=== PATIENT | female | born 1995 | race Caucasian/White ===

== ENCOUNTER → 2020-04-12 10:17 | Outpatient (CLI) | payer OTHER, SELFPAY ==
--- NOTE | ~2020-04-12 | US_ITS ---
EXAMINATION: US OB <=14 wk fetus w TV DATE: 04/12/2020 10:56 INDICATION: Supervision normal TECHNIQUE: Real-time transabdominal and transvaginal obstetric ultrasound. FINDINGS: No prior studies for comparison. The uterus measures 9.9 x 3.7 x 5 cm. There is an intrauterine gestational sac, with pole ident ified. The crown rump length measures 0.36 cm, which correlates with a estimated gestational age of 6 weeks 0 days. heart tones are identified measuring 112 BPM. There is a small subchorionic h emorrhage measuring 4 mm. The ovaries are normal bilaterally. IMPRESSION: 1. SL IUP with an EGA of 6 weeks, 0 days (EDC by current ultrasound of 12/06/2020). 2: Small subchorionic hemorrhage measuring 4 mm maximum dimension. Reviewed, dictated and finalized at location A. IMPRESSION: 1. SL IUP with an EGA of 6 weeks, 0 days (EDC by current ultrasound of ). 2: Small subchorionic hemorrhage measuring 4 mm maximum dimension.
== END ==
PROVIDERS: Visit Provider Student in an Organized Health Care Education/Training Program
DX: Z34.91 Encounter for supervision of normal pregnancy, unspecified, first trimester (principal); Z3A.01 Less than 8 weeks gestation of pregnancy
CPT/HCPCS: 76801; 76817

== ENCOUNTER → 2020-04-19 12:48 | Outpatient (CLI) | payer OTHER, SELFPAY ==
--- NOTE | ~2020-04-19 | US_ITS ---
EXAMINATION: US OB <=14 wk fetus w TV DATE: 04/19/2020 13:15 INDICATION: Assess viability and dating of during first trimester of . TECHNIQUE: Real-time pelvic ultrasound utilizing both a transvaginal and transabdominal probe was pe rformed. The interpreting radiologist was not present for the study. COMPARISON: 05/12/2020 FINDINGS: The uterus measures 10.4 x 5.1 x 5.9 cm. There is an intrauterine gestational sac. A yolk sac and fe luis pole are identified. The crown rump length measures 10 mm, which correlates with an estimated ges tational age of 7 weeks and 0 days. heart motion is identified measuring 141 beats per minute ( bpm) by M-mode Doppler. Prior small subchorionic hematomas not appreciated in the current study and h as likely resolved. The right ovary measures 2.6 x 2.1 x 3.1 cm. The left ovary measures 3.4 x 2.8 x 2.1 cm. There is no free fluid in the pelvis. IMPRESSION: 1. Single living fetus with heart rate of 141 bpm. 2. Gestational age by ultrasound of 7 weeks 0 day(s) +/- 4 day(s) with ultrasound estimated date of delivery (ENRIQUE) of 12/06/2020. Reviewed, dictated and finalized at location A. IMPRESSION: 1. Single living fetus with heart rate of 141 bpm. 2. Gestational age by ultrasound of 7 weeks 0 day(s) +/- 4 day(s) with ultraso und estimated date of delivery (ENRIQUE) of 12/06/2020.
== END ==
PROVIDERS: Visit Provider Student in an Organized Health Care Education/Training Program
DX: Z32.00 Encounter for pregnancy test, result unknown (principal)
CPT/HCPCS: 76801; 76817

== ENCOUNTER 2020-05-28 13:16 | Outpatient (CLI) | payer OTHER, SELFPAY ==
[2020-05-28 14:00] LABS: Basophils Percent Auto 0.3 % (0.2-1.2); Eosinophils Absolute Auto 0.1 K/mm3 (0-0.3); Eosinophils Percent Auto 0.4 % (0-4.4); Hematocrit 37.8 % (37.0-47.0); Hemoglobin 13.4 g/dL (12.0-15.0); Immature Granulocyte Absolute 0.05 K/mm3 (0.00-0.031); Immature Granulocyte Percent A 0.4 % (0-0.5); Lymphocytes Absolute Auto 2.28 K/mm3 (0.9-3.2); Lymphocytes Percent Auto 20.4 % (18.3-44.2); Mean Corpuscular HGB Conc 35.4 g/dl (32-36); Mean Corpuscular Hemoglobin 31.5 pg (26-34); Mean Corpuscular Volume 88.9 fl (80-100); Mean Platelet Volume 9.5 fl (7.4-10.4); Monocytes Absolute Auto 0.4 K/mm3 (0.1-0.6); Monocytes Percent Auto 3.6 % (2.6-8.5); Neutrophils Absolute Auto 8.4 K/mm3 (1.3-6.7); Neutrophils Percent Auto 74.9 % (45.5-73.1); Platelet Count Result 211 k/mm3 (150-375); Red Blood Count 4.25 M/mm3 (4.2-5.4); Red Cell Distribution Width 12.2 % (11.5-14.5); White Blood Count 11.2 K/mm3 (4.5-10.0)
[2020-05-28 14:18] LABS: Add Urine Microscopic? NO; Appearance Urine Clear (Clear); Bilirubin Urine Negative (Negative); Blood Urine Negative (Negative); Color Urine Straw (Yellow); Glucose Urine UA Negative (Negative); Ketones Urine Negative (Negative); Leukocyte Esterase Ur Negative LEU/UL (NEGATIVE); Nitrate Urine Negative (Negative); Protein Urine Negative (Negative); Specific Grav Ur 1.008 (1.001-1.035); Urobilinogen Urine Negative mg/dL (<2.0)
[2020-05-28 14:56] LABS: HIV 1/2 Ab P24 Ag Result Negative (Negative)
[2020-05-28 15:12] LABS: Hepatitis C Virus Antibody Negative (Negative)
[2020-05-28 15:41] LABS: Hepatitis B Surface Antigen Negative (Negative); Rubella IgG Antibody 23.5 IU/ML
[2020-05-31 12:34] LABS: Rapid Plasma Reagin Non-Reactive (NonReactive)
[2020-06-03 14:40] LABS: Hematocrit 38.2 % (35.0-45.0); Hemoglobin 13.3 g/dL (11.7-15.5); MCH 31.2 pg (27.0-33.0); RDW 12.7 % (11.0-15.0); Red Blood Cell Count 4.25 Mill/uL (3.80-5.10)
== END 2020-05-28 13:17 | disposition home or self-care (01) ==
PROVIDERS: PCP Internal Medicine; Visit Provider Student in an Organized Health Care Education/Training Program
DX: Z32.00 Encounter for pregnancy test, result unknown (principal)
CPT/HCPCS: 36415; 81003; 82306; 83021; 84443; 85025; 86592; 86703; 86762; 86787; 86803; 86850; 86900; 86901; 87086; 87340; G0432

== ENCOUNTER 2020-06-25 13:36 | Outpatient (CLI) | payer OTHER, SELFPAY ==
[2020-07-08 19:32] LABS: CF Result NEGATIVE (NEGATIVE)
== END 2020-06-25 13:37 | disposition home or self-care (01) ==
PROVIDERS: PCP Internal Medicine; Visit Provider Student in an Organized Health Care Education/Training Program
DX: Z32.00 Encounter for pregnancy test, result unknown (principal); Z3A.00 Weeks of gestation of pregnancy not specified
CPT/HCPCS: 36415; 81220; 81243

== ENCOUNTER 2020-08-27 13:20 | Outpatient (RCR) | payer OTHER, SELFPAY ==
[2020-08-27 13:54] LABS: Basophils Percent Auto 0.3 % (0.2-1.2); Eosinophils Absolute Auto 0.1 K/mm3 (0-0.3); Eosinophils Percent Auto 0.5 % (0-4.4); Hematocrit 35.9 % (37.0-47.0); Hemoglobin 12.4 g/dL (12.0-15.0); Immature Granulocyte Absolute 0.06 K/mm3 (0.00-0.031); Immature Granulocyte Percent A 0.5 % (0-0.5); Lymphocytes Absolute Auto 1.92 K/mm3 (0.9-3.2); Lymphocytes Percent Auto 17.4 % (18.3-44.2); Mean Corpuscular HGB Conc 34.5 g/dl (32-36); Mean Corpuscular Hemoglobin 31.6 pg (26-34); Mean Corpuscular Volume 91.3 fl (80-100); Monocytes Absolute Auto 0.5 K/mm3 (0.1-0.6); Monocytes Percent Auto 4.5 % (2.6-8.5); Neutrophils Absolute Auto 8.5 K/mm3 (1.3-6.7); Neutrophils Percent Auto 76.8 % (45.5-73.1); Platelet Count Result 162 k/mm3 (150-375); Red Blood Count 3.93 M/mm3 (4.2-5.4)
[2020-08-27 15:03] LABS: Glucose 1 Hour PP 50gm Dose 127 mg/dL
[2020-08-28] MEDS: RHO(D) IMMUNE GLOBULIN 300 MCG SYRINGE IM (08:49)
== END 2020-11-25 23:59 | disposition home or self-care (01) ==
LOC: ANHLAB 13:20
PROVIDERS: PCP Internal Medicine; Visit Provider Student in an Organized Health Care Education/Training Program
DX: Z29.13 Encounter for prophylactic Rho(D) immune globulin (principal); O36.0990 Maternal care for other rhesus isoimmunization, unspecified trimester, not applicable or unspecified; Z3A.00 Weeks of gestation of pregnancy not specified
CPT/HCPCS: 36415; 82947; 85025; 85461; 90384; 96372; J2790

== ENCOUNTER 2020-10-15 12:54 | Outpatient (CLI) | payer OTHER, SELFPAY ==
[2020-10-15 13:16] LABS: Basophils Percent Auto 0.3 % (0.2-1.2); Eosinophils Absolute Auto 0.1 K/mm3 (0-0.3); Eosinophils Percent Auto 0.6 % (0-4.4); Hematocrit 37.2 % (37.0-47.0); Hemoglobin 12.9 g/dL (12.0-15.0); Immature Granulocyte Absolute 0.05 K/mm3 (0.00-0.031); Immature Granulocyte Percent A 0.6 % (0-0.5); Immature Platelet Fraction Pct 6.2 % (0.9-11.2); Lymphocytes Absolute Auto 1.69 K/mm3 (0.9-3.2); Lymphocytes Percent Auto 21.2 % (18.3-44.2); Mean Corpuscular HGB Conc 34.7 g/dl (32-36); Mean Corpuscular Volume 92.3 fl (80-100); Mean Platelet Volume 10.6 fl (7.4-10.4); Monocytes Absolute Auto 0.5 K/mm3 (0.1-0.6); Monocytes Percent Auto 6.4 % (2.6-8.5); Neutrophils Absolute Auto 5.7 K/mm3 (1.3-6.7); Neutrophils Percent Auto 70.9 % (45.5-73.1); Platelet Count Result 146 k/mm3 (150-375); Red Blood Count 4.03 M/mm3 (4.2-5.4); Red Cell Distribution Width 13.2 % (11.5-14.5)
[2020-10-15 14:10] LABS: HIV 1/2 Ab P24 Ag Result Negative (Negative)
[2020-10-18 07:18] LABS: Rapid Plasma Reagin Non-Reactive (NonReactive)
== END 2020-10-15 12:55 | disposition home or self-care (01) ==
PROVIDERS: PCP Internal Medicine; Visit Provider Student in an Organized Health Care Education/Training Program
DX: Z34.90 Encounter for supervision of normal pregnancy, unspecified, unspecified trimester (principal); Z3A.00 Weeks of gestation of pregnancy not specified
CPT/HCPCS: 36415; 85025; 85055; 86592; 86703; G0432

== ENCOUNTER 2020-11-28 09:49 | Inpatient (IN) | payer OTHER, SELFPAY ==
[2020-11-28] VITALS (61 sets, daily range): BP systolic 97–139; BP diastolic 46–95; PULSE 66–176; RESP 20–22; TEMP 36.3–36.9; O2SAT 99–100; BMI 25.7
--- NOTE | 2020-11-28 09:49 | LDADM ---
This patient, Marisabel Santos, was admitted to Labor/Delivery/Recovery 106 on 11/28/20 at 09:49. Plans for labor, pain management and were discussed with patient. Patient/family oriented to hospital policies and general routines including ID bracelet, bed and alarms, visiting hours, pain management, procedures, bathroom and other care routines, personal items, smoking policy, room service/diet and guest tray routines, security routines, and visiting hours. Patient/Family are encouraged to report perceived risks to care and to ask questions if they do not understand what they are told or what they should do. See OBIX for further documentation.
--- NOTE | 2020-11-28 14:11 | PM.IMHP ---
H&P: HPI History of Present Illness Date/Time: 11/28/20 14:11 Pt is a 25yo LMP 02/13/20 currently 38w6d gestation. Pt is dated by an US on 04/12/20 at 6w gestation. Patient presented to L&D with complaints of contractions. Pt reports onset of contractions at approx. 7:00 a.m. and reports an increase in frequency and intensity since then. Denies any vaginal bleeding or leakage of fluid. Reports good movement. Upon arrival, pt was 2-3cm dilated and made cervical change to 4cm and patient was noted to be isabel every 2-3 mins. Decision made to admit patient in labor. Chief Complaint: labor Review of Systems Review of Systems: All systems reviewed & are unremarkable except as noted in HPI and below Constitutional: Constitutional: Reports as per HPI, Reports no additional constitutional complaints, Denies chills, Denies fever(s), Denies headache(s) and Denies night sweats Eyes: Eyes: Reports as per HPI and Reports no additional eye complaints ENT: Reports system reviewed and no additional complaints, except as documented, Reports as per HPI, Reports Normal hearing present and Denies headache(s) Cardiovascular: Cardiovascular: Reports as per HPI, Reports no additional cardiovascular complaints, Denies chest pain and Denies dyspnea Respiratory: Respiratory: Reports as per HPI, Reports no additional respiratory complaints, Denies cough and Denies dyspnea Gastrointestinal: Gastrointestinal: Reports as per HPI, Reports no additional gastrointestinal complaints, Denies abdominal pain, Denies change in bowel habits, Denies change in stool character, Denies nausea and Denies vomiting Genitourinary: Genitourinary: Reports no additional female genitourinary complaints, Reports as per HPI, Denies abnormal vaginal bleeding, Denies genital lesions, Denies hot flashes, Denies dyspareunia, Denies pelvic pain, Denies sexual dysfunction, Denies urinary incontinence, Denies vaginal discharge, Denies vaginal dryness and Denies vaginal odor Musculoskeletal: Musculoskeletal: Reports no additional musculoskeletal complaints and Reports as per HPI Integumentary/Breasts: Skin/Breast: Reports system reviewed and no additional complaints, except as docu, Reports as per HPI, Denies breast pain and Denies nipple discharge Neurologic: Reports system reviewed and no additional complaints, except as documented, Reports as per HPI, Reports Normal hearing present and Denies headache(s) Psychiatric: Psychiatric: Reports no additional psychiatric complaints, Reports as per HPI, Denies anxiety and Denies depression Endocrine: Endocrine: Reports no additional endocrine complaints and Reports as per HPI Hematologic/Lymphatic: Hematologic/Lymphatic: Reports no additional hematologic/lymphatic complaints and Reports as per HPI Allergic/Immunologic: Allergic/Immunologic: Reports no additional allergic/immunologic complaints and Reports as per HPI PMFSH Past Medical History Medical History Acid reflux Surgical History Surgical History [place] teeth removed Family History Family History Father Diabetes mellitus Grandparent Carcinoma of colon Social History Social History Smoking status: Never smoker Alcohol intake: current Substance use: never Spiritual care concerns: No Meds Home Medications and Allergies Home Medications Medication Instructions Recorded Confirmed Type prenat.vits,hayden,hqj-ghvi-ahjlc 1 tablet PO HS 11/19/20 11/19/20 History [ #2] Allergies Allergy/AdvReac Type Severity Reaction Status Date / Time No Known Allergies Allergy Verified 11/23/20 12:14 Vital Signs Vital Signs - 24 hr 11/28/20 12:00 11/28/20 14:09 Temperature 36.4 C Pulse Rate 72 Blood Pressure 122/82 Exam Const:
[2020-11-28 14:12] LABS: Basophils Percent Auto 0.4 % (0.2-1.2); Eosinophils Percent Auto 0.3 % (0-4.4); Hematocrit 42.1 % (37.0-47.0); Hemoglobin 14.4 g/dL (12.0-15.0); Immature Granulocyte Absolute 0.06 K/mm3 (0.00-0.031); Immature Granulocyte Percent A 0.6 % (0-0.5); Immature Platelet Fraction Pct 10.5 % (0.9-11.2); Lymphocytes Absolute Auto 2.23 K/mm3 (0.9-3.2); Lymphocytes Percent Auto 23.6 % (18.3-44.2); Mean Corpuscular HGB Conc 34.2 g/dl (32-36); Mean Corpuscular Hemoglobin 31.1 pg (26-34); Mean Corpuscular Volume 90.9 fl (80-100); Mean Platelet Volume 11.4 fl (7.4-10.4); Monocytes Absolute Auto 0.6 K/mm3 (0.1-0.6); Monocytes Percent Auto 5.8 % (2.6-8.5); Neutrophils Absolute Auto 6.6 K/mm3 (1.3-6.7); Neutrophils Percent Auto 69.3 % (45.5-73.1); Platelet Count Result 140 k/mm3 (150-375); Red Blood Count 4.63 M/mm3 (4.2-5.4); Red Cell Distribution Width 13.4 % (11.5-14.5); White Blood Count 9.5 K/mm3 (4.5-10.0)
--- NOTE | 2020-11-28 14:18 | WPDHPUPDATE1 ---
History and Physical Update Update Date/Time: 11/28/20 14:18 History and Physical has been reviewed, including an updated exam of the patient. There are NO changes in the patient's condition. Risks, benefits, and alternatives have been discussed and questions answered. Patient agrees to proceed with procedure.
[2020-11-28] MEDS: LACTATED RINGERS 1,000 ML 125 ML IV CONT ×2 (15:28→16:34)
--- NOTE | 2020-11-28 15:38 | P.PNAN_ITS ---
Anes - Eval Pre Procedure Procedure: Labor epidural Date/Time: 11/28/20 15:38 Surgeon: reynold Preop Diagnosis: pain during labor Pre Op Diagnosis: contractions Patient Data Age: 25 Gender: F Height: 1.68 m Weight: 72.5 kg Last Vital Signs Temp 36.9 C 11/28/20 14:09 Pulse 87 11/28/20 15:15 BP 111/70 11/28/20 15:15 Allergies Allergy/AdvReac Type Severity Reaction Status Date / Time No Known Allergies Allergy Verified 11/23/20 12:14 Home Medications Medication Instructions Recorded Confirmed Type prenat.vits,hayden,atz-dfci-raprk 1 tablet PO HS 11/19/20 11/28/20 History [ #2] Laboratory Tests 11/28/20 11/28/20 14:04 14:04 WBC 9.5 K/mm3 K/mm3 (4.5-10.0) RBC 4.63 M/mm3 M/mm3 (4.2-5.4) Hgb 14.4 g/dL g/dL (12.0-15.0) Hct 42.1 % % (37.0-47.0) MCV 90.9 fl fl (80-100) MCH 31.1 pg pg (26-34) MCHC 34.2 g/dl g/dl (32-36) RDW 13.4 % % (11.5-14.5) Plt Count 140 k/mm3 L k/mm3 (150-375) MPV 11.4 fl H fl (7.4-10.4) Immature Gran % (Auto) 0.6 % H % (0-0.5) Neut % (Auto) 69.3 % % (45.5-73.1) Lymph % (Auto) 23.6 % % (18.3-44.2) [place] % (Auto) 5.8 % % (2.6-8.5) Eos % (Auto) 0.3 % % (0-4.4) Baso % (Auto) 0.4 % % (0.2-1.2) Lymph # (Auto) 2.23 K/mm3 K/mm3 (0.9-3.2) [place] # (Auto) 0.6 K/mm3 K/mm3 (0.1-0.6) Eos # (Auto) 0.0 K/mm3 K/mm3 (0-0.3) Baso # (Auto) 0.0 K/mm3 K/mm3 (0.0-0.1) Abs Immat Gran (auto) 0.06 K/mm3 H K/mm3 (0.00-0.031) Absolute Neuts (auto) 6.6 K/mm3 K/mm3 (1.3-6.7) Absolute Nucleated RBC 0.0 K/mm3 K/mm3 (0.0-0.012) Nucleated RBC % 0.0 % % (0.0-0.2) % Immature Plt Fraction 10.5 % % (0.9-11.2) RPR Pending Patient hx anesthesia problems: none Family hx anesthesia problems: none PMFSH Past Medical History Medical History Acid reflux Surgical History Surgical History [place] teeth removed Family History Family History Father Diabetes mellitus Grandparent Carcinoma of colon Social History Social History Smoking status: Never smoker Alcohol intake: current Substance use: never Spiritual care concerns: No Exam Day of Procedure 11/28/20 15:38
[2020-11-28] MEDS: OXYTOCIN 30 UNITS/NS 500 ML 30 UNITS/500 ML BAG IV CONT (18:00)
[2020-11-28] MEDS: CALCIUM CARBONATE (TUMS) 500 MG (200 MG ELEMENTAL) PO (19:37)
--- NOTE | 2020-11-28 21:54 | PM.OBPRVD ---
OB - Delivery Note Procedure Delivery date: 11/28/20 Procedure: The patient is a 25-year-old now who presented to labor and delivery on the morning of 11/28/2020 at 38w6d gestation with complaints of contractions. Patient was noted to be isabel approximately every 2-3 minutes upon presentation. Cervical exam was approximately 2-3 cm dilated. Patient was observed for approximately 2 hours during which time she made cervical change to 4 cm dilated. Patient was admitted in active labor. Artificial rupture was performed 2:09 p.m. Clear amniotic fluid was noted. Cervical exam at that time was still 4 cm dilated. Patient was allowed to progress on own for several hours during which time she made little cervical change. Patient became uncomfortable and requested an epidural for pain management which was placed without difficulty. Decision was made to augment labor with Pitocin. Patient progressed to fully dilated at 8:25 p.m. Patient was encouraged to push and found to be pushing well. She was prepped and draped for delivery. At 9:09 p.m., patient delivered head atraumatically and without difficulty in AL presentation. Occiput restituted to maternal right side. With subsequent push, the 's neck, shoulders, rest of body were delivered without difficulty. Infant was crying spontaneously. Infant's nose and mouth were suctioned with bulb suction. Infant was placed on maternal abdomen where care was assumed by awaiting nursing staff. Delayed cord clamping was performed for approximately 60 seconds. The cord was clamped and cut. Infant voided spontaneously. A segment of cord was collected for cord gases. Cord blood was also collected. The placenta was delivered spontaneously and intact. Uterine fundus was noted to be firm with massage. On inspection, bilateral periurethral lacerations were noted as well as a second-degree perineal laceration. These lacerations were repaired with 2-0 and 3-0 Vicryl in the usual fashion. Excellent hemostasis was noted. QBL for entire delivery was 309 cc. The infant was a live-born male infant, Apgars 9 and 9, weighing 7 lb 3 oz. Both mother and baby doing well at and delivery. Delivery augmentation: rupture of membranes and pitocin Delivery monitor: external FHT and external uterine Route of delivery: Laceration Description: Periurethral (bilateral) and Perineal - 2nd Degree Delivery repair: vicryl (2-0 and 3-0) Specimen: Yes (cord blood and cord gases) Quantitative Blood Loss (ml): 309 Anesthesia type: Epidural Disposition: floor Complications: No immediate complicated Baby Date of : 11/28/20 Time of : 21:09 Weeks of gestation at delivery: 38 (38.6) gender: Male Weight (pounds): 7 Weight (ounces): 3 presentation: vertex position: Right Occiput Anterior Placenta delivery description: Spontaneous cord vessel description: 3 Vessels and Delayed Cord Clamping score one minute: 9 score five minutes: 9
[2020-11-28] MEDS: OXYTOCIN 30 UNITS/NS 500 ML 30 UNITS/500 ML BAG 125 UNITS IV CONT (21:55)
[2020-11-28] MEDS: WITCH HAZEL 40 PADS 1 PAD TOPICAL (23:40)
[2020-11-28] MEDS: BENZOCAINE 20% AER SPR (*SP) 56 GM CAN 1 SPRAY TOPICAL (23:40)
[2020-11-29] VITALS (8 sets, daily range): BP systolic 114–130; BP diastolic 78–87; PULSE 72–89; RESP 16–18; TEMP 36.4–37.3; O2SAT 99–100
[2020-11-29] MEDS: IBUPROFEN 600 MG TABLET PO ×4 (00:15→21:55)
--- NOTE | 2020-11-29 01:14 | OBPPTRN ---
11/29/2020 at 0002 Patient transferred to post room #281 in wheelchair. Support person present. Oriented to unit, room, information board, rooming in, admission packet and security measures. Patient verbalizes understanding.
[2020-11-29] MEDS: ACETAMINOPHEN 325 MG TABLET 650 MG PO ×3 (04:09→17:38)
[2020-11-29] MEDS: DOCUSATE SODIUM 100 MG CAPSULE PO ×2 (07:31→17:38)
[2020-11-29] MEDS: MULTIVIT/MIN/PREN/FOL AC/IRON TABLET 1 TAB PO (07:31)
--- NOTE | 2020-11-29 08:09 | WPDANLDPN2 ---
Anes-Prog Note L&D Date/Time: 11/29/20 08:09 Comfortable throughout: labor Neuraxial method: epidural Epidural/Spinal procedure site: clean & non-tender Neuro status: Neuro function grossly intact. Cardiovascular status: normal Respiratory status: normal Airway patency: baseline Mental status: baseline Post-Op hydration status: normal Vital Signs: Last Vital Signs Temp 36.4 C 11/29/20 04:43 Pulse 80 11/29/20 04:43 Resp 18 11/29/20 04:43 BP 124/81 11/29/20 04:43 Pulse Ox 100 11/28/20 17:57 Pain score (VAS): 0 I/O: Intake & Output 11/28/20 11/29/20 11/29/20 23:59 07:59 15:59 Intake Total 2100 Output Total 132 Balance 1968 Post-procedural complaints: none Patient feedback: Patient satisfied with anesthetic care.
--- NOTE | 2020-11-29 08:45 | PC.NURSE ---
Mother called out for assist with feeding. Mother reports infant is awake and eagerly latching without difficulties/discomfort. Consulted with patient, reviewed feeding cues, frequencies, duration of feedings, feeding elimination flow sheet, and signs of adequate intake. Demonstrated stimulation techniques to wake infant for feeding. Assisted with infant to breast. Reviewed positioning/alignment in cross cradle, holding breast in ?U? hold and guided asymmetrical latch on. Infant able to latch correctly. Infant nursed eagerly, with steady draws and frequent swallowing noted. Reviewed signs of a correct latch, effective nursing and suck swallow ratio. was able to maintain latch without discomfort to mother. Demonstrated how to adjust latch more deeply while feeding. Mother reports she can feel change in latch and has no tenderness. Nipple care reviewed of lanolin after feedings, warm compresses as needed. Suggested mother stimulate while feeding to increase stimulate, increase intake and to assist with maintaining deep latch. Instructed mother to call out for RN assistance if she is unable to latch for feeding or she has discomfort with nursing. Instructed feeding should be initiated three hours from start of last feeding or if feeding cues are noted before. Mother voiced understanding of information shared.
[2020-11-29 08:55] LABS: Rapid Plasma Reagin Non-Reactive (NonReactive)
--- NOTE | 2020-11-29 09:18 | PM.OBPNVD ---
OB - PN: Subj Subjective Date/time seen: 11/29/20 09:18 She reports adequate pain control. No leg pain. Ambulating well. Patient comments: pain well controlled, tolerating diet and other (Decreasing lochia.) baby status: doing well OB - PN: Obj Data Labs CBC & Chem 7: 11/29/20 04:28 Labs: Laboratory Results - last 24 hr 11/28/20 11/28/20 11/28/20 14:04 14:04 14:04 WBC 9.5 RBC 4.63 Hgb 14.4 Hct 42.1 MCV 90.9 MCH 31.1 MCHC 34.2 RDW 13.4 Plt Count 140 L MPV 11.4 H Immature Gran % (Auto) 0.6 H Neut % (Auto) 69.3 Lymph % (Auto) 23.6 [place] % (Auto) 5.8 Eos % (Auto) 0.3 Baso % (Auto) 0.4 Lymph # (Auto) 2.23 [place] # (Auto) 0.6 Eos # (Auto) 0.0 Baso # (Auto) 0.0 Abs Immat Gran (auto) 0.06 H Absolute Neuts (auto) 6.6 Absolute Nucleated RBC 0.0 Nucleated RBC % 0.0 % Immature Plt Fraction 10.5 RPR Non-reactive Blood Type O Negative Antibody Screen Negative Screen Baby's Blood Type Baby's DENISE Doses of RhIg Required 11/29/20 11/29/20 04:28 04:28 WBC RBC Hgb 11.0 L D Hct 32.0 L MCV MCH MCHC RDW Plt Count MPV Immature Gran % (Auto) Neut % (Auto) Lymph % (Auto) [place] % (Auto) Eos % (Auto) Baso % (Auto) Lymph # (Auto) [place] # (Auto) Eos # (Auto) Baso # (Auto) Abs Immat Gran (auto) Absolute Neuts (auto) Absolute Nucleated RBC Nucleated RBC % % Immature Plt Fraction RPR Blood Type O Negative Antibody Screen TNP Screen Negative Baby's Blood Type O pos Baby's DENISE Negative Doses of RhIg Required 1 OB - PN A/P Plan day: 1 Plan: routine care Comments: Patient doing well. Continue routine care. Time Spent With Patient Time: Total time spent is greater than 50% in coordination of care (as documented) at patient's floor/unit and/or counseling patient: Exam Psych: Affect: normal affect Other: Abd: fundus firm below umbilicus, nontender Perineum: healing Ext: nontender
[2020-11-29] MEDS: RHO(D) IMMUNE GLOBULIN 300 MCG/2 ML SYRINGE IM (12:00)
[2020-11-30] MEDS: ACETAMINOPHEN 325 MG TABLET 650 MG PO (02:20)
[2020-11-30 08:05] VITALS: BP 106/73; PULSE 78; RESP 16; TEMP 37.1; O2SAT 99
[2020-11-30] MEDS: DOCUSATE SODIUM 100 MG CAPSULE PO (08:27)
[2020-11-30] MEDS: IBUPROFEN 600 MG TABLET PO (08:27)
[2020-11-30] MEDS: MULTIVIT/MIN/PREN/FOL AC/IRON TABLET 1 TAB PO (08:28)
[2020-11-30 08:30] VITALS: PULSE 78; RESP 16; O2SAT 99
--- NOTE | 2020-11-30 08:40 | PM.OBPNVD ---
OB - PN: Subj Subjective Date/time seen: 11/30/20 08:40 Patient doing well. Pain well controlled with medication. Moderate lochia. Ambulating without difficulty. Voiding well. Baby well. OB - PN: Obj Data Labs CBC & Chem 7: 11/29/20 04:28 Labs: Laboratory Results - last 24 hr 11/28/20 11/29/20 14:04 04:28 RPR Non-reactive Blood Type O Negative Antibody Screen TNP Screen Negative Baby's Blood Type O pos Baby's DENISE Negative Doses of RhIg Required 1 OB - PN A/P Assessment and Plan (1) Normal spontaneous vaginal delivery: Code(s): O80 - Encounter for full-term uncomplicated delivery Status: Acute Assessment and Plan: PPD#2 doing well continue routine care discharge home in stable condition emergency precautions reviewed f/u in office in 4-6 weeks or sooner if necessary Time Spent With Patient Time: Total time spent is greater than 50% in coordination of care (as documented) at patient's floor/unit and/or counseling patient: Exam Const: General: cooperative, healthy appearing, comfortable and no acute distress GI: Inspection: non-distended GI Palp: Yes Soft to palpation and No Tenderness to palpation present (GI) Other: fundus firm below umbilicus Extrem: Right lower extremity: no edema Left lower extremity: no edema Other: no calf tenderness
--- NOTE | 2020-11-30 08:49 | PM.OBDSVD ---
DS: Admitting Diagnosis Admitting Diagnosis Admitting Diagnosis: Active labor OB - DS: Summary OB Procedures : None OB Procedures Intrapartum: Spontaneous Vag Delivery OB Procedures: : None Time Spent with Patient Time attestation: Total time spent providing and/or coordinating discharge services: DS: Data Data Completed and Pending Labs on day of discharge: Labs from last 24 hours 11/29/20 11/28/20 04:28 14:04 RPR Non-reactive Blood Type O Negative Antibody Screen TNP Screen Negative Baby's Blood Type O pos Baby's DENISE Negative Doses of RhIg Required 1 Discharge Plan Discharge Attending physician on discharge: Margaret Lozada Discharging Clinician: Margaret Lozada Anticipated Discharge Date/Time: 11/30/20 08:50 Patient Disposition: Home, Self-Care Activity: as tolerated and pelvic rest Diet: regular Discharge Instructions: Call office ([phone]) to schedule a visit in 4-6 weeks. You may take Ibuprofen 600mg every 6 hours as needed for pain. Pain medication may make you constipated. It may be helpful to take an [id number] stool softener, such as Colace and/or Senokot, along with the pain medication to help lessen constipation. Call office or go to ED for pain not controlled with medication, headache, chest pain, shortness of breath, fever, chills, persistent nausea or vomiting, severe abdominal pain, heavy vaginal bleeding >2 pads/hour, foul vaginal discharge or odor, or problems with your breasts. Education: Mom and Baby Guide Given to: Mother Follow-Up: Call your delivering provider's office for an appointment to be seen in: 4-6 Weeks Mom and baby should come to the [facility] for the follow-up appointment. Appointment Date/Time: December 02, 2020 at 10:00 am What to expect at your follow-up visit: Blood Pressure Check Physical Assessment Call [phone] if you are unable to keep your appointment time. BREAST CARE: * Wear a snug supportive bra. * For engorgement discomfort: Breast Feeding: * Apply warm moist washcloths * Express milk as needed to relieve engorgement * Wear loose clothing * For sore nipples: * Identify correct latch-on * Apply warm moist washcloths before and after nursing * Air dry nipples after nursing * May apply Lansinoh cream to nipples EPISIOTOMY/PERINEAL CARE: * Until bleeding stops, use your violet bottle after urinating * Change your pad frequently throughout the day * You may take sitz baths several times a day (fill your bathtub with warm water and soak for 20 minutes.) Do NOT bathe in the water * No tub baths until seen by your physician - You may shower ACTIVITY: * Rest as much as possible. * Do not exercise or lift anything heavier than your baby (such as laundry or other children.) * Avoid stairs or driving as much as possible. * Do not put anything into the vagina. No douching, tampons, or sexual activity until seen by physician. NOTIFY PHYSICIAN IF YOU HAVE ANY QUESTIONS OR IF ANY OF THE FOLLOWING SYMPTOMS OCCUR: * If your vaginal area becomes red, swollen, or more painful than what you have experienced in the hospital. * If your vaginal bleeding becomes foul smelling. * If your vaginal bleeding becomes more heavy than a period or if your bleeding changes from pink to bright red. However, you may pass an occasional walnut-sized clot once or twice for the first week . * If you experience a sharp, shooting pain in your calves. * If you discover a hard, reddened area on your breast or if you experience flu-like symptoms. DIET: * Eat regular, well-balanced meals. * Drink plenty of fluids daily. If , drink to thirst. Patient Instructions: Antibiotic Form, Vaginal Delivery (DC) Stand Alone Forms: General Discharge Information Follow-up/Referrals: [facility]
--- NOTE | 2020-11-30 09:45 | PC.NURSE ---
Observed mother verbalizes she is able to independently latch with appropriate positioning/alignment. She denies any nipple discomfort, is feeding as required and waking to feed if needed. has had at least 8 effective feedings in the past 24 hours, and is currently meeting outcomes for weight, output, jaundice and feeding frequencies. Mother states she feels confident to continue effective at home. Reviewed transition to breast milk, signs of adequate intake, and engorgement/relief. Instructed to call ICP if intake/output less than required. Reviewed regular medications mother is taking. Information provided per Miguelina. Reviewed community resources on the [facility] website and in the Mom/Baby guide. Information on outpatient services provided. Mother has no further questions at this time.
[2020-12-02 10:20] VITALS: BP 125/85; PULSE 99; RESP 20; TEMP 37.1; O2SAT 100
== END 2020-11-30 11:49 | disposition home or self-care (01) | DRG 807 ==
LOC: ANHLDR 13:48 → ANHOB2 11-29 00:03
PROVIDERS: Admitting Provider Student in an Organized Health Care Education/Training Program; PCP Internal Medicine; Visit Provider Student in an Organized Health Care Education/Training Program
DX: O99.62 Diseases of the digestive system complicating childbirth (principal); Z37.0 Single live birth; Z3A.38 38 weeks gestation of pregnancy; K21.9 Gastro-esophageal reflux disease without esophagitis; O36.8330 Maternal care for abnormalities of the fetal heart rate or rhythm, third trimester, not applicable or unspecified; O70.1 Second degree perineal laceration during delivery; O71.82 Other specified trauma to perineum and vulva
CPT/HCPCS: 36415; 85014; 85018; 85025; 85055; 85461; 86592; 86850; 86900; 86901; 90384; A9270; J2590; J2790; J2795; J7120

== ENCOUNTER 2022-06-05 11:36 | Emergency (ER) | payer OTHER, SELFPAY ==
[2022-06-05 11:47] VITALS: BP 130/81; PULSE 84; RESP 18; TEMP 36.5; O2SAT 100
--- NOTE | 2022-06-05 11:59 | ED.EAR ---
HPI - Ear Problem General Chief complaint: Upper Respiratory Infection Stated complaint: lt ear pain Time Seen by Provider: 06/05/22 11:50 Source: patient Mode of arrival: ambulatory Limitations: no limitations History of Present Illness HPI Narrative: Ms. Santos is a 26-year-old female patient presenting to clinic today with complaints of left-sided ear pain times 2-3 days. She reports she is having ringing in the left ear as well as difficulty hearing. She thinks that her eardrum may have ruptured. States she has had some clear drainage coming of the ear Related Data Allergies Allergy/AdvReac Type Severity Reaction Status Date / Time No Known Allergies Allergy Verified 06/05/22 11:53 Review of Systems Review of Systems: Pertinent positives per HPI. Patient denies any fever, chills, rash, headache, visual changes, dizziness, cough, shortness of breath, chest pain, palpitations, nausea, vomiting, diarrhea, constipation, abdominal pain, or any urinary issues. PMFSH Past Medical History Medical History Acid reflux Surgical History Surgical History [place] teeth removed Family History Family History Father Diabetes mellitus Grandparent Carcinoma of colon Social History Social History Smoking status: Never smoker Alcohol intake: current Substance use: never Spiritual care concerns: No Comments At the time of my signature, I reviewed and agree with the nursing past medical, surgical, social, and family history. There is no relevant family history pertinent to the patient complaint. Exam Narrative: General: Well-developed, well nourished, in no apparent distress Head: Normocephalic, atraumatic Eyes: Pupils equally round and reactive to light bilaterally, EOM intact, sclera and conjunctive clear, no discharge, lids normal Ears: Right TMs intact and clear, left TM intact,dull, opaque, mucus behind the eardrum with some bulging noted, ear canals clear, no drainage, grossly hearing normal. Nose: Nares patent, clear nasal discharge, no inflammation, no sinus tenderness. Mouth: Oral pharynx without lesions or masses, good dentition, MMM. Neck: Supple, trachea midline, no enlargement of anterior or posterior cervical nodes, no thyroid masses or goiter palpable. Cardio: Regular rate and rhythm, s1 and s2 normal, no murmur appreciated. Resp: Clear to auscultation bilaterally, no rhonchi, rales, wheezing or rubs Course Course Emergency Course: Portions of this record may have been created with voice recognition software. Level of Care: Express Care Visit Vital Signs Vital signs: Vital Signs Temperature 36.5 C 06/05/22 11:47 Pulse Rate 84 06/05/22 11:47 Respiratory Rate 18 06/05/22 11:47 Blood Pressure 130/81 06/05/22 11:47 Pulse Oximetry 100 06/05/22 11:47 Oxygen Delivery Room Air 06/05/22 11:47 Temperature 36.5 C 06/05/22 11:47 Pulse Rate 84 06/05/22 11:47 Respiratory Rate 18 06/05/22 11:47 Blood Pressure 130/81 06/05/22 11:47 Pulse Oximetry 100 06/05/22 11:47 Oxygen Delivery Room Air 06/05/22 11:47 Vital signs reviewed Medical Decision Making MDM Narrative Medical decision making narrative: At the time of visit patient is resting comfortably on the exam table I suspect that she has serous otitis media. Prescription for prednisone was sent to the pharmacy and discussed continuing the use of her amoxicillin that her primary care doctor provided testing case this was infected prior. Supportive measures were discussed with the patient she voiced understanding of discharge instructions and agrees to treatment plan. Differential Diagnosis Differential Diagnosis: Otitis media, serous otitis, otitis externa, eu
== END 2022-06-05 12:04 | disposition home or self-care (01) ==
PROVIDERS: Emergency Provider Nurse Practitioner Family
DX: H65.02 Acute serous otitis media, left ear (principal); H93.12 Tinnitus, left ear; K21.9 Gastro-esophageal reflux disease without esophagitis
CPT/HCPCS: 99213; G0463

== ENCOUNTER 2023-04-12 11:50 | Outpatient (CLI) | payer OTHER, SELFPAY ==
[2023-04-12 12:32] LABS: Basophils Percent Auto 0.3 % (0.2-1.2); Eosinophils Absolute Auto 0.1 K/mm3 (0-0.3); Eosinophils Percent Auto 1.1 % (0-4.4); Hematocrit 42.5 % (37.0-47.0); Hemoglobin 14.5 g/dL (12.0-15.0); Immature Granulocyte Absolute 0.03 K/mm3 (0.00-0.031); Immature Granulocyte Percent A 0.3 % (0-0.5); Lymphocytes Absolute Auto 2.43 K/mm3 (0.9-3.2); Lymphocytes Percent Auto 27.5 % (18.3-44.2); Mean Corpuscular HGB Conc 34.1 g/dl (32-36); Mean Corpuscular Hemoglobin 31.1 pg (26-34); Mean Corpuscular Volume 91.2 fl (80-100); Mean Platelet Volume 9.9 fl (7.4-10.4); Monocytes Absolute Auto 0.4 K/mm3 (0.1-0.6); Neutrophils Absolute Auto 5.8 K/mm3 (1.3-6.7); Neutrophils Percent Auto 65.8 % (45.5-73.1); Platelet Count Result 210 k/mm3 (150-375); Red Blood Count 4.66 M/mm3 (4.2-5.4); Red Cell Distribution Width 12.2 % (11.5-14.5); White Blood Count 8.8 K/mm3 (4.5-10.0)
[2023-04-12 13:22] LABS: HIV 1/2 Ab P24 Ag Result Negative (Negative)
[2023-04-12 13:25] LABS: Rubella IgG Antibody 23.5 IU/ML
[2023-04-12 15:39] LABS: Rapid Plasma Reagin Non-Reactive (NonReactive)
[2023-04-12 21:40] LABS: Hepatitis B Surface Antigen Negative (Negative)
[2023-04-16 09:30] LABS: CMV IgG Antibody <0.60 U/mL (<0.60)
[2023-04-23 10:51] LABS: SMA 2.0 RISK VARIANT NOT DETECTED
[2023-04-24 11:32] LABS: CF Result NEGATIVE (NEGATIVE)
[2023-04-24 14:45] LABS: SMA Results Received Yes
== END 2023-04-12 11:51 | disposition home or self-care (01) ==
LOC: ANHLAB 11:51
PROVIDERS: Visit Provider Obstetrics & Gynecology
DX: N91.2 Amenorrhea, unspecified (principal)
CPT/HCPCS: 36415; 81220; 81329; 84702; 85025; 86592; 86644; 86703; 86747; 86762; 86787; 86850; 86900; 86901; 87086; 87340; G0432

== ENCOUNTER 2023-06-26 09:26 | Emergency (ER) | payer OTHER, SELFPAY ==
--- NOTE | ~2023-06-26 | US_ITS ---
US abdomen limited INDICATION: Right upper quadrant pain PROCEDURE: Realtime right upper abdominal ultrasound. COMPARISON: No prior studies for comparison. FINDINGS: The pancreas is normal without focal mass or pancreatic ductal dilation. Liver echotexture is normal without focal mass or intrahepatic biliary dilatation. There is normal directional flow i n the portal vein. The gallbladder is normal without stones, gallbladder wall thickening or pericholecystic fluid. Comm on bile duct measures 4 mm. No sonographic Crews's sign. IMPRESSION: 1: Normal limited abdominal ultrasound. Reviewed, dictated and finalized at location L. LE R12 DEVELOPER
[2023-06-26 09:38] VITALS: BP 118/71; PULSE 83; RESP 18; TEMP 36.6; O2SAT 100
[2023-06-26] MEDS: SODIUM CHLORIDE 0.9% IV 1,000 ML 999 ML IV CONT (11:33)
--- NOTE | 2023-06-26 11:38 | ED.ABDPAIN ---
HPI - Abdominal Pain General Chief Complaint: Abdominal Pain Stated Complaint: UPPER ABD PAIN 19WKS PREG Time Seen by Provider: 06/26/23 11:02 History of Present Illness HPI narrative: 27-year-old female that is and currently 20 weeks presents to the emergency department complaining of upper abdominal pain that radiates to her back. Patient denies any vaginal bleeding vaginal discharge or lower abdominal cramping. Patient denies any prior history of gallbladder disease but states she does have a family history of gallbladder disease. Patient called her OB Gyne, Dr. Franz and patient was told to present to the ED for evaluation. Related Data Home Medications Medication Instructions Recorded Confirmed vitamin BYMOUTH 03/27/23 05/16/23 Allergies Allergy/AdvReac Type Severity Reaction Status Date / Time No Known Allergies Allergy Verified 06/12/23 09:05 Review of Systems Review of Systems: All systems reviewed & are unremarkable except as noted in HPI and below PMFSH Past Medical History Medical History Acid reflux Cervical smear, as part of routine gynecological examination Encounter for contraceptive surveillance Surgical History Surgical History [place] teeth removed Family History Family History Father Diabetes mellitus Grandparent Carcinoma of colon Social History Social History Smoking status: Never smoker Alcohol intake: never Substance use: never Substance use type: does not use Lack of Transportation: No Lack of Food: Never True Current Housing: I Have Housing Concerned About Future Housing: No Difficulty Paying Gas/Electric Bills: No Difficulty Paying for Meds: No Currently Unemployed: No Education: Master's Degree or Higher Difficulty w/ Childcare or Family Care: No Living arrangements: with family 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 HEAD: normocephalic, atraumatic. EYES: PERRLA/EOMI, conjunctivae clear. NOSE: Normal no drainage EARS:TMS clear with good light reflex. THROAT: Pharynx clear, no exudate. NECK: Supple. No adenopathy, no masses. RESPIRATORY: Airway patent, respirations nonlabored. Clear to auscultation bilaterally, no rales, rhonchi, wheezing. CARDIOVASCULAR: Regular rate and rhythm without murmurs rubs or gallops. ABDOMINAL: Right upper quadrant tenderness to palpation with no lower abdominal tenderness to palpation MUSCULOSKELETAL: Moves all extremities. Strength/ROM intact, No edema, No calf tenderness. NEURO: Alert. Cranial nerves II through XII intact. grossly intact SKIN: Warm, dry. Normal Color Course Course Emergency Course: 27-year-old female that is and approximately 20 weeks presents to emergency department for evaluation of upper abdominal cramping. Ob was called to do a nonstress test and toco monitor. on exam patient does have reproducible right upper quadrant tenderness. Patient was treated with IV fluids and a right upper quadrant ultrasound was ordered. Patient is afebrile but does have a leukocytosis of 11.3. Patient has a stable hemoglobin of 12.9. Nine patient's CMP patient has no elevation in her lactic acid T bili AST ALT or alk-phos. Patient did have some reproducible tenderness of the right upper quadrant so ultrasound was ordered to evaluate for cholecystitis an ultrasound was negative. UA did have some bacteria but patient denies any urinary symptoms so a u
[2023-06-26] MEDS: BELLADONNA ALK/PHENOB ELIX 10 ML, MAG HYDROX/ALUMINUM HYD/SIMETH 30 ML, LIDOCAINE HCL 2... PO (11:45)
--- NOTE | 2023-06-26 11:45 | PC.NURSE ---
In ER for monitoring. Pt denies lower abdominal pain. No contractions seen on TOCO. FHTs doppled in right lower quadrant. FHTs 130s-140. Pt feels normal movement and movement heard on monitor.
[2023-06-26 11:54] LABS: Basophils Percent Auto 0.2 % (0.2-1.2); Eosinophils Percent Auto 0.1 % (0-4.4); Hematocrit 37.6 % (37.0-47.0); Hemoglobin 12.9 g/dL (12.0-15.0); Immature Granulocyte Absolute 0.05 K/mm3 (0.00-0.031); Immature Granulocyte Percent A 0.4 % (0-0.5); Lymphocytes Absolute Auto 2.01 K/mm3 (0.9-3.2); Lymphocytes Percent Auto 17.8 % (18.3-44.2); Mean Corpuscular HGB Conc 34.3 g/dl (32-36); Mean Corpuscular Hemoglobin 31.5 pg (26-34); Mean Corpuscular Volume 91.9 fl (80-100); Mean Platelet Volume 10.1 fl (7.4-10.4); Monocytes Absolute Auto 0.5 K/mm3 (0.1-0.6); Monocytes Percent Auto 4.6 % (2.6-8.5); Neutrophils Absolute Auto 8.7 K/mm3 (1.3-6.7); Neutrophils Percent Auto 76.9 % (45.5-73.1); Platelet Count Result 186 k/mm3 (150-375); Red Blood Count 4.09 M/mm3 (4.2-5.4); Red Cell Distribution Width 13.2 % (11.5-14.5); White Blood Count 11.3 K/mm3 (4.5-10.0)
--- NOTE | 2023-06-26 11:54 | PC.NURSE ---
Pt to ED with c/o cramps that radiate to her back for 3 days. Denies any vaginal discharge or bleeding. States she called Dr. Franz office instructed to come to ER and tell staff she is 20 weeks . Pt states I'm really 19 weeks & 5days . OB RN at bedside monitor for contractions & heart tones. No contractions noted heart tones WNL
[2023-06-26 11:56] LABS: Appearance Urine Turbid (Clear); Bacteria Urine 1+ /hpf; Bilirubin Urine Negative (Negative); Blood Urine Negative (Negative); Color Urine Yellow (Yellow); Glucose Urine UA Negative (Negative); Ketones Urine 2+ mg/dL (Negative); Leukocyte Esterase Ur Negative LEU/UL (Negative); Nitrate Urine Negative (Negative); Non Pathogenic Casts 0-2; Protein Urine Negative (Negative); RBC Urine 0-2 /hpf (0-2); Specific Grav Ur 1.017 (1.001-1.035); Squamous Epithelial Cell Urine None seen /hpf (Few); WBC Urine 0-5 /hpf
[2023-06-26 11:58] LABS: Add Urine Microscopic? YES
[2023-06-26 12:05] LABS: Lactic Acid Reflex 0.8 mmol/L (0.7-2.0)
[2023-06-26 12:07] LABS: Alanine Aminotransferase 12 U/L (6-35); Albumin Level 4.2 g/dL (3.5-5.1); Alkaline Phosphatase 64 U/L (38-126); Anion Gap 10 mmol/L (8-16); Aspartate Amino Transferase 18 U/L (14-36); Bilirubin,Total 0.6 mg/dL (0.2-1.3); Blood Urea Nitrogen 5 mg/dL (7-17); Calcium 8.9 mg/dL (8.4-10.2); Carbon Dioxide 22 mmol/L (22-30); Chloride 104 mmol/L (98-107); Estimated CRCL calculation 131 ml/min; Estimated Glomerular Filt Rate > 60; Glucose 95 mg/dL (65-110); Potassium 3.9 mmol/L (3.4-5.0); Sodium 136 mmol/L (137-145)
== END 2023-06-26 13:56 | disposition home or self-care (01) ==
PROVIDERS: Emergency Provider Emergency Medicine
DX: O99.612 Diseases of the digestive system complicating pregnancy, second trimester (principal); K80.50 Calculus of bile duct without cholangitis or cholecystitis without obstruction; K21.9 Gastro-esophageal reflux disease without esophagitis; Z3A.20 20 weeks gestation of pregnancy
CPT/HCPCS: 36415; 76705; 80053; 81001; 81025; 83605; 85025; 96360; 96361; 99284; A9270; J7030

== ENCOUNTER 2023-08-28 10:45 | Outpatient (RCR) | payer OTHER, SELFPAY ==
[2023-08-27 13:13] LABS: Basophils Percent Auto 0.4 % (0.2-1.2); Eosinophils Absolute Auto 0.1 K/mm3 (0-0.3); Eosinophils Percent Auto 0.7 % (0-4.4); Hematocrit 35.6 % (37.0-47.0); Hemoglobin 11.8 g/dL (12.0-15.0); Immature Granulocyte Percent A 1.2 % (0-0.5); Lymphocytes Absolute Auto 1.55 K/mm3 (0.9-3.2); Lymphocytes Percent Auto 18.2 % (18.3-44.2); Mean Corpuscular HGB Conc 33.1 g/dl (32-36); Mean Corpuscular Hemoglobin 31.8 pg (26-34); Mean Platelet Volume 10.3 fl (7.4-10.4); Monocytes Absolute Auto 0.5 K/mm3 (0.1-0.6); Monocytes Percent Auto 5.7 % (2.6-8.5); Neutrophils Absolute Auto 6.3 K/mm3 (1.3-6.7); Neutrophils Percent Auto 73.8 % (45.5-73.1); Platelet Count Result 170 k/mm3 (150-375); Red Blood Count 3.71 M/mm3 (4.2-5.4); Red Cell Distribution Width 13.7 % (11.5-14.5); White Blood Count 8.5 K/mm3 (4.5-10.0)
[2023-08-27 13:26] LABS: Glucose 1 Hour PP 50gm Dose 122 mg/dL
[2023-08-27 14:06] LABS: HIV 1/2 Ab P24 Ag Result Negative (Negative)
[2023-08-28] MEDS: RHO(D) IMMUNE GLOBULIN 300 MCG/2 ML SYRINGE IM (10:57)
== END 2023-08-28 11:00 | disposition home or self-care (01) ==
LOC: ANHLAB 10:45
PROVIDERS: Visit Provider Obstetrics & Gynecology
DX: Z11.4 Encounter for screening for human immunodeficiency virus [HIV] (principal); Z29.13 Encounter for prophylactic Rho(D) immune globulin; O36.0190 Maternal care for anti-D [Rh] antibodies, unspecified trimester, not applicable or unspecified; Z3A.00 Weeks of gestation of pregnancy not specified
CPT/HCPCS: 36415; 82947; 85025; 85461; 86703; 86850; 86900; 86901; 90384; 96372; G0432; J2790

== ENCOUNTER 2023-11-05 22:03 | Inpatient (IN) | payer OTHER, SELFPAY ==
[2023-11-05 23:53] VITALS: BMI 24.8
--- NOTE | 2023-11-05 23:53 | LDADM ---
This patient, Marisabel Santos, was admitted to Labor/Delivery/Recovery 108 on 11/05/23 at 22:03. Plans for labor, pain management and were discussed with patient. Patient/family oriented to hospital policies and general routines including ID bracelet, bed and alarms, visiting hours, pain management, procedures, bathroom and other care routines, personal items, smoking policy, room service/diet and guest tray routines, security routines, and visiting hours. Patient/Family are encouraged to report perceived risks to care and to ask questions if they do not understand what they are told or what they should do. See OBIX for further documentation.
[2023-11-06] VITALS (120 sets, daily range): BP systolic 71–151; BP diastolic 46–95; PULSE 62–100; RESP 16–18; TEMP 36.2–36.8; O2SAT 89–100
[2023-11-06 00:20] LABS: Basophils Percent Auto 0.4 % (0.2-1.2); Eosinophils Absolute Auto 0.1 K/mm3 (0-0.3); Eosinophils Percent Auto 0.9 % (0-4.4); Hemoglobin 12.5 g/dL (12.0-15.0); Immature Granulocyte Absolute 0.14 K/mm3 (0.00-0.031); Immature Granulocyte Percent A 1.4 % (0-0.5); Immature Platelet Fraction Pct 9.3 % (0.9-11.2); Lymphocytes Absolute Auto 2.71 K/mm3 (0.9-3.2); Lymphocytes Percent Auto 27.9 % (18.3-44.2); Mean Corpuscular HGB Conc 33.8 g/dl (32-36); Mean Corpuscular Hemoglobin 31.4 pg (26-34); Mean Platelet Volume 11.2 fl (7.4-10.4); Monocytes Absolute Auto 0.8 K/mm3 (0.1-0.6); Monocytes Percent Auto 7.7 % (2.6-8.5); Neutrophils Percent Auto 61.7 % (45.5-73.1); Platelet Count Result 121 k/mm3 (150-375); Red Blood Count 3.98 M/mm3 (4.2-5.4); Red Cell Distribution Width 13.6 % (11.5-14.5); White Blood Count 9.7 K/mm3 (4.5-10.0)
[2023-11-06] MEDS: LACTATED RINGERS 1,000 ML 125 ML IV CONT ×3 (00:28→08:34)
[2023-11-06] MEDS: OXYTOCIN 30 UNITS/NS 500 ML 30 UNITS/500 ML BAG IV CONT (01:45)
--- NOTE | 2023-11-06 07:04 | WPDANESEPPF ---
Anes - Initial Pre Proc Eval Procedure: Labor epidural Date/Time: 11/06/23 07:04 Surgeon: Marisela Franz MD Pre Op Diagnosis: Labor pain Pre Op Diagnosis: Contractions Patient Data Age: 28 Gender: F Height: 1.65 m Weight: 67.8 kg Last Vital Signs Temp 36.2 C L 11/06/23 06:30 Pulse 74 11/06/23 07:00 Resp 16 11/06/23 06:30 BP 115/78 11/06/23 07:00 Pulse Ox 97 11/06/23 07:02 O2 Del Method Room Air 11/05/23 23:53 Allergies Allergy/AdvReac Type Severity Reaction Status Date / Time No Known Allergies Allergy Verified 11/06/23 00:02 Home Medications Medication Instructions Recorded Confirmed Type vitamin 1 tab-cap PO DAILY 03/27/23 11/06/23 History azithromycin 250 mg tablet See Rx Instructions PO .COMPLEX #6 11/02/23 11/06/23 Rx tabs Laboratory Tests 11/06/23 00:01 WBC 9.7 K/mm3 (4.5-10.0) RBC 3.98 L M/mm3 (4.2-5.4) Hgb 12.5 g/dL (12.0-15.0) Hct 37.0 % (37.0-47.0) MCV 93.0 fl (80-100) MCH 31.4 pg (26-34) MCHC 33.8 g/dl (32-36) RDW 13.6 % (11.5-14.5) Plt Count 121 L k/mm3 (150-375) MPV 11.2 H fl (7.4-10.4) Immature Gran % (Auto) 1.4 H % (0-0.5) Neut % (Auto) 61.7 % (45.5-73.1) Lymph % (Auto) 27.9 % (18.3-44.2) [place] % (Auto) 7.7 % (2.6-8.5) Eos % (Auto) 0.9 % (0-4.4) Baso % (Auto) 0.4 % (0.2-1.2) Lymph # (Auto) 2.71 K/mm3 (0.9-3.2) [place] # (Auto) 0.8 H K/mm3 (0.1-0.6) Eos # (Auto) 0.1 K/mm3 (0-0.3) Baso # (Auto) 0.0 K/mm3 (0.0-0.1) Abs Immat Gran (auto) 0.14 H K/mm3 (0.00-0.031) Absolute Neuts (auto) 6.0 K/mm3 (1.3-6.7) Absolute Nucleated RBC 0.000 K/mm3 (0.0-0.012) Nucleated RBC % 0.0 % (0.0-0.2) % Immature Plt Fraction 9.3 % (0.9-11.2) RPR Pending Blood Type O Negative Antibody Screen Positive Antibody Identification Inconclusive Antigen Identification Cancelled DENISE, IgG Interpret Negative DENISE, Poly Interpret Neg DENISE, Complement Interp Not Performed Patient hx anesthesia problems: none Family hx anesthesia problems: none Results Review: All pre-operative results and documents have been reviewed as part of the pre-operative evaluation. [facility] Past Medical History Medical History Acid reflux Cervical smear, as part of routine gynecological examination Encounter for contraceptive surveillance Vaginal discharge Surgical History Surgical History [place] teeth removed Family History Family History Father Diabetes mellitus Grandparent Carcinoma of colon Social History Social History Smoking status: Never smoker Alcohol intake: never Substance use: never Substance use type: does not use Do You Feel Safe in your Home?: Yes Lack of Transportation: No Lack of Food: Never True Current Housing: I Have Housing Concerned About Future Housing: No Difficulty Paying Gas/Electric Bills: No Difficulty Paying for Meds: No Currently Unemployed: No Education: Master's Degree or Higher Difficulty w/ Childcare or Family Care: No Living arrangements: with family 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 Informed Consent: The patient's anesthetic plan and its attendant risks and benefits were discussed with the patient/family/POA. Questions were solicited and answers provided to the satisfaction of the patient/family/POA.
--- NOTE | 2023-11-06 07:51 | WPDOBADMIT ---
Obstetrics - Admit Note Admission Note: record reviewed. No pertinent additions to the history and/or any subsequent changes in the physical findings that are not consistent with the expected course of the were found. Additions to the history and/or subsequent changes in the physical findings follow. 28yo @ 38.4wks who presented to L&D in labor; made good change to 4.5cm. complicated by Rh negative. Has had regular care. No s/p epidural. No VB or LOF. FHT's category 1 TOCO: regular ctx q2-3 min Cervix: 5/50/-2 GBS negative Pitocin augmentation AROM, clear 0775
--- NOTE | 2023-11-06 12:14 | PM.OBPRVD ---
OB - Vaginal Delivery Note Procedure Delivery date: 11/06/23 Delivery augmentation: Rupture of Membranes and Pitocin Delivery monitor: External FHT and External Uterine Route of delivery: Episiotomy description: None Laceration Description: Periurethral and Vaginal (right) Delivery repair: vicryl Quantitative Blood Loss (ml): 250 Anesthesia type: Epidural Disposition: Floor Complications: No immediate complications [place] Baby Date of : 11/06/23 Time of : 11:54 Weeks of gestation at delivery: 38 (.4) Infant gender: Male presentation: vertex position: Right Occiput Anterior Placenta delivery description: Expressed Cord Vessel Description: 3 Vessels and Delayed Cord Clamping score one minute: 9 score five minutes: 9 Narrative: Marisabel rapidly progressed to complete dilation with strong desire to push. She pushed for 2 contractions and delivered the head over intact perineum. No nuchal cord was palpated. She easily delivered the infant's shoulders and body without complication. The was immediately placed skin to skin and had spontaneous cry. Delayed cord clamping was performed. The umbilical cord was then clamped and cut. A segment of the cord was collected for cord gases. The remaining cord blood was collected for typing. With Pitocin running and gentle downward traction on the cord, the placenta delivered without complications. Bimanual massage was performed and good uterine tone with minimal bleeding was noted. She was examined and a right periurethral and right vaginal laceration were identified. The lacerations were repaired in the normal fashion using 2-0 Vicryl. By manual massage revealed good uterine tone with minimal bleeding. Sponge, lap, instrument, and needle counts were correct at the end the procedure. Mom and baby were left bonding in the birthing suite in stable condition. [facility] Delivery Billing Delivery Delivery: Delivery Charge
[2023-11-06] MEDS: OXYTOCIN 30 UNITS/NS 500 ML 30 UNITS/500 ML BAG 125 UNITS IV CONT (12:28)
[2023-11-06 13:16] LABS: Rapid Plasma Reagin Non-Reactive (NonReactive)
[2023-11-06] MEDS: WITCH HAZEL 40 PADS 1 PAD TOPICAL (15:00)
[2023-11-06] MEDS: BENZOCAINE 20% AER SPR (*SP) 56 GM CAN 1 SPRAY TOPICAL (15:00)
--- NOTE | 2023-11-06 15:13 | PC.NURSE ---
Patient transferred to post room #277 per wheelchair from labor and delivery. Support person present. Oriented to unit, room, information board, rooming in, admission packet and security measures. Patient verbalizes understanding.
[2023-11-06] MEDS: IBUPROFEN 600 MG TABLET PO ×2 (16:29→23:30)
[2023-11-06] MEDS: ACETAMINOPHEN 325 MG TABLET 650 MG PO (20:14)
[2023-11-07] MEDS: ACETAMINOPHEN 325 MG TABLET 650 MG PO ×2 (04:04→12:05)
[2023-11-07 04:15] VITALS: BP 110/77; PULSE 69; RESP 18; TEMP 36.5
[2023-11-07 05:42] LABS: Hematocrit 37.6 % (37.0-47.0); Hemoglobin 12.7 g/dL (12.0-15.0)
--- NOTE | 2023-11-07 06:52 | P.PNOB_ITS ---
OB - PN: Subj Subjective Date/time seen: 11/07/23 06:52 Narrative: PPD#1 Marisabel reports doing well today. 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 Her pain is controlled. She is tolerating regular diet, voiding, passing gas, and ambulating without issues. She is breast feeding. She would like her son circumcised. She would like to go home today. OB - PN: Obj Data Labs 11/07/23 04:17 Labs: Laboratory Results - last 24 hr 11/06/23 11/07/23 00:01 04:17 Hgb 12.7 Hct 37.6 RPR Non-reactive OB - PN A/P Assessment and Plan (1) Normal vaginal delivery of second : Code(s): O80 - Encounter for full-term uncomplicated delivery Status: Acute Plan day: 1 Plan: routine care and discharge home Comments: - PO pain meds - Regular diet - Ambulation and hydration encouraged - Continue putting baby to breast q2-3hr - Discharge home this afternoon - pelvic rest, return precautions. Time Spent With Patient Time: Total time spent is greater than 50% in coordination of care (as documented) at patient's floor/unit and/or counseling patient: Review of Systems Constitutional: Constitutional: Denies chills, Denies fever(s) and Denies headache(s) Eyes: Eyes: Denies change in vision ENT: Denies dizziness and Denies headache(s) Cardiovascular: Cardiovascular: Denies chest pain, Denies palpitations and Denies dyspnea Respiratory: Respiratory: Denies cough and Denies dyspnea Gastrointestinal: Gastrointestinal: Denies nausea and Denies vomiting Neurologic: Denies dizziness and Denies headache(s) Endocrine: Endocrine: Denies palpitations Exam Const: General: cooperative, comfortable and no acute distress Orientation/consciousness: patient oriented x3 Resp: Effort & Inspection: normal respiratory effort Auscultation: clear to auscultation bilaterally Cardio: Rate: regular rate GI: Inspection: non-distended GI Palp: No abdominal tenderness and Yes Soft to palpation Auscultation: normal bowel sounds : Other: fundus firm Skin: General skin exam: normal color Neuro: General: patient oriented x3 Extrem: General: normal to inspection Psych: Appearance: grossly normal Affect: normal affect Attitude: cooperative
[2023-11-07 07:25] VITALS: BP 101/77; PULSE 70; RESP 15; TEMP 36.3; O2SAT 100
--- NOTE | 2023-11-07 07:34 | P.DS_ITS ---
DS: Admitting Diagnosis Discharge Date 11/07/23 Admitting Diagnosis active labor at term rh neg DS: Discharge Diagnosis Discharge Diagnosis (1) Normal vaginal delivery of second : Code(s): O80 - Encounter for full-term uncomplicated delivery Status: Acute OB - DS: Summary OB Procedures : Ultrasound OB Procedures Intrapartum: Spontaneous Vag Delivery OB Procedures: : None Peripartum Data Infant Delivery Method: Natural Vaginal Laceration Description: Periurethral and Vaginal (right) Episiotomy description: None complications: none [place] 1: Gender: Male Disposition of : home Status at Discharge Functional status at discharge: independent ambulation Overall status at discharge: patient is back to baseline Time Spent with Patient Time attestation: Total time spent providing and/or coordinating discharge services: Time spent: Less than 30 minutes Exam Const: General: cooperative, healthy appearing, comfortable and no acute distress Orientation/consciousness: patient oriented x3 Resp: Effort & Inspection: normal respiratory effort Auscultation: clear to auscultation bilaterally Cardio: Rate: regular rate GI: Inspection: non-distended GI Palp: No abdominal tenderness and Yes Soft to palpation Auscultation: normal bowel sounds : Other: fundus firm Skin: General skin exam: normal color Neuro: General: patient oriented x3 Extrem: General: normal to inspection Psych: Appearance: grossly normal Affect: normal affect Attitude: cooperative DS: Data Data Completed and Pending Labs on day of discharge: Labs from last 24 hours 11/07/23 11/06/23 04:17 00:01 Hgb 12.7 Hct 37.6 RPR Non-reactive Discharge Plan Discharge Attending physician on discharge: Marisela Franz Discharging Clinician: Marisela Franz Anticipated Discharge Date/Time: 11/07/23 14:00 Patient Disposition: Home, Self-Care Activity: may shower and pelvic rest Diet: regular Patient Instructions: Vaginal Delivery (DC) Stand Alone Forms: General Discharge Information Follow-up/Referrals: Marisela Franz MD [Physician] - 4 Weeks Discharge Medications: New acetaminophen 325 mg Tablet 650 mg PO Q6H PRN (Reason: Mild Pain (1-3) Or Headache) Qty: 60 0RF docusate sodium 100 mg Capsule 100 mg PO BID PRN (Reason: Constipation) Qty: 60 0RF ibuprofen 600 mg Tablet 600 mg PO Q6H PRN (Reason: Cramping) Qty: 40 0RF Continued vitamin 1 tab-cap PO DAILY azithromycin 250 mg tablet See Rx Instructions PO .COMPLEX Qty: 6 0RF Rx Instructions: For 250 mg dose pack: take 500 mg today (day 1), then 250 mg for 4 days (days 2-5) orally as direction; Date of admission: 11/05/23 22:03 Primary Care Provider: UNKNOWN,DOCTOR Admitting Provider: Marisela Franz Attending physician on admission: Marisela Franz Condition: Stable
--- NOTE | 2023-11-07 07:46 | WPDANLDPN2 ---
Anes-Prog Note L&D Date/Time: 11/07/23 07:46 Comfortable throughout: labor and delivery Neuraxial method: epidural Epidural/Spinal procedure site: clean & non-tender Neuro status: Neuro function grossly intact. Cardiovascular status: normal Respiratory status: normal Airway patency: baseline Mental status: baseline Post-Op hydration status: normal Vital Signs: Last Vital Signs Temp 97.7 F 11/07/23 04:15 Pulse 69 11/07/23 04:15 Resp 18 11/07/23 04:15 BP 110/77 11/07/23 04:15 Pulse Ox 100 11/06/23 16:25 O2 Del Method Room Air 11/06/23 20:14 Pain score (VAS): 0/10 I/O: Intake & Output 11/06/23 11/06/23 11/07/23 15:59 23:59 07:59 Intake Total 1500 750 Balance 1500 750 Post-procedural complaints: none Patient feedback: Patient satisfied with anesthetic care.
[2023-11-07 08:15] VITALS: BP 112/83; PULSE 69; RESP 18; TEMP 36.7; O2SAT 100
[2023-11-07 08:17] VITALS: TEMP 36.7
[2023-11-07] MEDS: IBUPROFEN 600 MG TABLET PO (08:17)
[2023-11-07] MEDS: MULTIVIT/MIN/PREN/FOL AC/IRON TABLET 1 TAB PO (08:24)
[2023-11-07] MEDS: DOCUSATE SODIUM 100 MG CAPSULE PO (08:24)
[2023-11-07] MEDS: LANOLIN (LANSINOH) 7.5 GM CREAM 1 APPLIC TOPICAL (08:25)
[2023-11-07] MEDS: BENZOCAINE 20% AER SPR (*SP) 56 GM CAN 1 SPRAY TOPICAL (08:25)
--- NOTE | 2023-11-07 09:00 | PC.NURSE ---
Patient instructed on viewing the discharge video Mother & Baby Care, The First Two Weeks . Patient was given the opportunity and encouraged to ask questions. Patient verbalized understanding of information shared and has been given the mother/baby guide for home reference.
--- NOTE | 2023-11-07 09:31 | PC.NURSE ---
On 11/07/23, the student, Mickie Roa, provided care and completed [facility] documentation on this patient. I have reviewed the student's documentation and agree with the findings.
--- NOTE | 2023-11-07 13:17 | PC.NURSE ---
[id number] Introductions were made, then consulted with patient to assess needs related to . Mother led the conversation with her?plans to feed?her infant and the?experience so far. Encouraged understanding of the benefits of skin to skin (demonstrating unwrapping and placing upright on her chest), stimulating with massage touch, changing positions to encourage wakefulness, how to watch for early feeding cues, responsive feeding, feeding on demand (aiming for 8-12 times in 24 hours, about every 2-3 hours), milk production, building/maintaining a milk supply, duration of feeding, signs of adequate intake/output and how to record on the feeding sheet. Inpatient/outpatient resources provided with feeding sheet, name written on the communication board, and the mom/baby guide. Parents voiced understanding of information, demonstrated learning and will call if there is a request for assistance. [id number] Infant is sleepy. Demonstrated stimulating infant for . Infant is sleepy and reluctant. Syringe fed 0.4 mls of the 2.5mls of EBM that mother has pumped with her personal pump. Infant is now awake, quiet and alert. Infant will latch, however; is not interested in at this time. Mother will practice [id number], then use responsive feeding to breastfeed when she visualizes the feeding cues. Encouraged mother to call for assistance if infant doesn't latch, there's pain with latching or any concerns or questions. Parents given the option to syringe feed the the additional 2mls of EBM if infant will not latch. Reviewed less than 24 hour behavior of a term infant and signs of a good latch with appropriate intake and output. Parents voiced understanding of the information and will call as needed.
[2023-11-09 12:51] VITALS: BP 115/84; PULSE 75; RESP 18; TEMP 36.7; O2SAT 100
== END 2023-11-07 14:45 | disposition home or self-care (01) | DRG 807 ==
LOC: ANHLDR 11-06 01:07 → ANHOB2 11-06 15:26
PROVIDERS: Admitting Provider Obstetrics & Gynecology; Visit Provider Obstetrics & Gynecology
DX: O26.893 Other specified pregnancy related conditions, third trimester (principal); Z37.0 Single live birth; Z3A.38 38 weeks gestation of pregnancy; O71.82 Other specified trauma to perineum and vulva; Z67.91 Unspecified blood type, Rh negative; O71.4 Obstetric high vaginal laceration alone
CPT/HCPCS: 36415; 85014; 85018; 85025; 85055; 86592; 86850; 86880; 86900; 86901; A9270; J2590; J2795; J7120

== ENCOUNTER 2025-02-12 08:12 | Outpatient (CLI) | payer BC, SELFPAY ==
--- NOTE | ~2025-02-12 | US_ITS ---
US thyroid INDICATION: Hypothyroidism TECHNIQUE: Real-time sonographic images of the thyroid gland were obtained. COMPARISON: No prior studies for comparison. FINDINGS: The right thyroid lobe measures 5.7 x 2 x 1.8 cm. The left thyroid lobe measures 4.6 x 1.5 x 1.6 cm. There is normal echotexture and echogenicity throughout the thyroid gland. No discrete nod ules identified. Diffusely increased vascular flow is present. IMPRESSION: 1. Normal thyroid gland with increased vascularity. Reviewed, dictated and finalized at location A.
== END 2025-02-12 08:13 | disposition home or self-care (01) ==
PROVIDERS: PCP Nurse Practitioner; Visit Provider Nurse Practitioner Family
DX: E03.9 Hypothyroidism, unspecified (principal)
CPT/HCPCS: 76536